=== PATIENT | male | born 1955 | race Caucasian/White ===

== ENCOUNTER 2023-03-13 01:00 | Emergency (ER) | payer BC ==
[~2023-03-13] VITALS: Ht 167.6 cm; Wt 67.1 kg
[2023-03-13 01:06] VITALS: BP 120/50; PULSE 92; RESP 16; TEMP 97.8; O2SAT 95
--- NOTE | 2023-03-13 01:13 | NUR ---
TO LOBBY FOLLOWING TRIAGE
[2023-03-13 03:11] LABS: APPEARANCE,URINE CLEAR (CLEAR); BILIRUBIN,URINE NEGATIVE (NEGATIVE); BLOOD, URINE 1+ (NEGATIVE); COLOR,URINE YELLOW (YELLOW); LEUKOCYTE ESTERASE ,URINE TRACE (NEGATIVE); NITRITE, URINE NEGATIVE (NEGATIVE); UGLUCOSE NEGATIVE (NEGATIVE)
[2023-03-13 03:19] LABS: RBC,URINE 0-5 /HPF (0-5)
[2023-03-13] MEDS ORDERED: CEPH250C16 PO (04:40)
[2023-03-13] MEDS ORDERED: TAMS0.4C96 PO (04:40)
[2023-03-13 05:20] VITALS: BP 120/49; PULSE 92; RESP 16; TEMP 97.8; O2SAT 95
--- NOTE | 2023-03-13 05:21 | NUR ---
Patient discharged with v/s stable. Written and verbal after care instructions given and explained. New rx cephalexin and tamsulosin. Pt was d/c with indwelling catheter, and care instructions were given via dice dealer ID#[id number]. Patient verbalized understanding. Ambulatory with steady gait. All questions addressed prior to discharge. Advised to follow up with PMD.
== END 2023-03-13 05:21 | disposition home or self-care (01) ==
LOC: MED 01:00
DX: R33.9 Retention of urine, unspecified (principal); N39.0 Urinary tract infection, site not specified; I10 Essential (primary) hypertension; E78.00 Pure hypercholesterolemia, unspecified; Z79.899 Other long term (current) drug therapy; Z79.2 Long term (current) use of antibiotics
CPT/HCPCS: 51702; 81001; 87086; 99284